=== PATIENT | female | born 1990 | race Caucasian/White ===

== ENCOUNTER 2017-04-21 16:14 | Emergency (ER) | payer BC ==
[~2017-04-21] VITALS: Ht 177.8 cm; Wt 100.0 kg
[2017-04-21 16:17] VITALS: TEMP 98.7
[2017-04-21] MEDS ORDERED: RECLIPSEN 0.151 TAB PO (16:20)
[2017-04-21] MEDS ORDERED: ZOLOFT 100MG100 MG PO (16:42)
[2017-04-21] MEDS ORDERED: GLUCOPHAGE XR500 M1 PO (16:42)
[2017-04-21 17:18] VITALS: BP 156/99; PULSE 81
== END 2017-04-21 17:19 | disposition home or self-care (01) ==
LOC: COL.ER 16:14
DX: S93.402A Sprain of unspecified ligament of left ankle, initial encounter (principal); S80.212A Abrasion, left knee, initial encounter; S80.211A Abrasion, right knee, initial encounter; X50.1XXA Overexertion from prolonged static or awkward postures, initial encounter; Y92.89 Other specified places as the place of occurrence of the external cause